=== PATIENT | male | born 2005 | race Two or more races ===

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

== ENCOUNTER 2023-02-04 10:20 | Emergency (ER) | payer MEDICAID ==
[~2023-02-04] VITALS: Ht 170.2 cm; Wt 60.8 kg
[~2023-02-04 10:20] MED LIST: CIPR-173 PO; IBUP-1456 PO; METR500T PO
[2023-02-04 11:43] VITALS: BP 116/60
[2023-02-04] MEDS ORDERED: ALPRAZolam 0.5 MG TAB PO ONE (12:00)
[2023-02-04] MEDS ORDERED: ALPR0.5T PO (13:53)
== END 2023-02-04 14:04 | disposition home or self-care (01) ==
LOC: ER 10:20
DX: F41.9 Anxiety disorder, unspecified (principal)